=== PATIENT | male | born 1960 | race Caucasian/White ===

== ENCOUNTER 2022-09-21 19:04 | Inpatient (IN) ==
[2022-09-21] MEDS ORDERED: SODIUM CHLORIDE 0.9% 1000ML 1,000 ML IV SCH (19:15)
--- NOTE | 2022-09-21 19:25 | Emergency Department Note ---
Impression & Plan Syncope, PRO (acute kidney injury), Rhabdomyolysis, Elevated troponin I level ED Provider Note NAME: ZAKI LEIGH AGE: 61 SEX: M : 1960 ARRIVES VIA: Ambulance INFORMANT: Patient, EMS, the patient's ED PROVIDER(S): Delvin Wayne DO CHIEF COMPLAINT: Syncope HPI: The patient is a 61-year-old male who presented to the emergency department for an evaluation after having a syncopal episode. The patient was involved in the [employer] tri[place]lon this afternoon. He states that he did not have any food after the race. He finished at approximately 4:15 PM. The patient states that he has had trouble with cramping throughout the race. It started early this morning when he was doing the swimming part. He did finish the entire triath [place]. The patient was at the living accommodations waiting for food to be delivered. He had gotten out of the hot tub. They were sitting at the table when his significant other witnessed him pass out. He did not fall. He was seated at the time. There is no reported chest pain or difficulty breathing. The patient did have an episode of emesis. He was treated with IV fluids prior to arrival. Upon arrival the patient has no complaints. He states he feels at his baseline. 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 He states has been compliant with his outpatient medications otherwise. ROS: See above HPI for pertinent positives & negatives. A total of 10 systems reviewed and were otherwise negative. PAST MEDICAL HISTORY: See Below PAST SURGICAL HISTORY: See Below FAMILY HISTORY: See Below SOCIAL HISTORY: See Below HOME MEDICATIONS: See Below ALLERGIES: See Below VITALS: See Below PHYSICAL EXAMINATION: GENERAL: Patient is awake alert in no acute distress patient is resting comfortably and showing no signs of anxiety EYES: The conjunctivae are clear. The pupils are round and reactive. EARS, NOSE, MOUTH AND THROAT: The nose is without any evidence of any deformity. NECK: The neck is nontender and supple. RESPIRATORY: Normal respiratory effort is noted there is no evidence of wheezing rhonchi or rales CARDIOVASCULAR: Regular rate and rhythm noted there no murmurs rubs or gallops normal S1 normal S2. GASTROINTESTINAL: The abdomen is soft. Abdomen is nontender. MUSCULOSKELETAL/EXTREMITIES: There is no evidence of gross deformity full range of motion is noted in the hips and shoulders. SKIN: Skin is cool and dry. There is no pedal edema but the patient is diaphoretic in the lower extremities. NEUROLOGIC: Patient is awake alert and oriented x3 strength is symmetric patellar reflexes are 2+ bilaterally MEDICAL DECISION MAKING: The patient is a 61-year-old male who presented to the emergency department after having a syncopal episode. The patient arrived via ambulance. The patient had an episode of emesis. This occurred while he was seated. There was no reported trauma. The patient had no focal neurologic deficits. He was feeling much better on reevaluation after being treated with IV fluids. I discussed the patient's laboratory and radiographic studies with him. He was found to have an elevation in his creatinine. I doubt this is the patient's baseline creatinine given his past medical history. He was also found to have a slight elevation in his troponin which is likely secondary to running and participating in the recent [place]. The patient was reevaluated multiple times. [facility] have agreed to evaluate the patient in the emergency department for further management and disposition. Triage Nursing notes reviewed. Prior medical records reviewed Vital Signs: reviewed and remarkable for no significant abnormalities Differential diagnosis: Vasovagal event, dehydration, infection, hypoglycemia, electrolyte abnormalities, cardiac sources, intracerebral event, pulmonary embolism, seizure, toxicologic, neurologic, as well as other pathologies. ER treatment provided: See below Diagnostics interpreted by me: ECG: EKG was obtained in the emergency department. My interpretation is sinus bradycardia 55 bpm. There was no ectopy. There is no acute ST segment abnormalities noted. No previous tracing was available. Cardiac Monitoring: An order was placed for continuous cardiac monitoring. The monitor shows a rate of 60 bpm with sinus rhythm. Laboratory studies: As stated above and show below. Imaging studies: See below. Radiographic imaging was reviewed by myself Consultation(s): I discussed this case with Dr. Mckeon who [facility] Past Med/Surg History Medical History Hypertension Protein S deficiency Surgical History H/O bilateral hip replacements Social History Smoking Status: Never smoker Allergies Allergies Allergy/AdvReac Type Severity Reaction Status Date / Time Penicillins Allergy Unknown Verified 09/21/22 19:20 Home Meds Home Medications Medication Instructions Recorded Confirmed amlodipine 5 mg tablet 5 mg PO DAILY 09/21/22 09/21/22 apixaban 5 mg tablet (Eliquis) 5 mg PO BID 09/21/22 09/21/22 guselkumab 100 mg/mL subcutaneous 100 mg subcut .[id number] 09/21/22 09/21/22 auto-injector (Tremfya) losartan 100 mg tablet 100 mg PO DAILY 09/21/22 09/21/22 Results & Data (ED) Vital Signs Vital Signs - 24 hr 09/21/22 19:09 09/21/22 19:19 09/21/22 19:15 Temperature 36.7 C Temperature Source Oral Pulse Rate 58 L 60 Respiratory Rate 12 Respiratory Effort / Characteristics Non-Labored Spontaneous Respiratory Depth Normal Respiratory Pattern Regular Blood Pressure 124/78 Blood Pressure Mean 93 Pulse Oximetry 92 95 Oxygen Delivery Method Room Air Sepsis Recent Fever Within 48 Hours No Sepsis New/Unexplained Change in Mental Status No Sepsis Action Taken by Nursing No Action Required Home Medications Current Medication List: was personally reviewed by me Laboratory Data Attestation: I reviewed the patient's lab results. 09/21/22 19:10 09/21/22 19:10 Lab Results 09/21/22 09/21/22 09/21/22 Range/Units 19:10 19:10 19:10 WBC 13.14 H (4.8-10.8) K/ul RBC 4.77 (4.70-6.10) M/uL Hgb 14.6 (14.0-18.0) g/dl Hct 41.3 L (42.0-52.0) % MCV 86.6 (80.0-100.0) fL MCH 30.6 (25.0-34.0) pg MCHC 35.4 (32.0-36.0) g/dL RDW Std Deviation 41.0 (36.4-46.3) fL RDW Coeff of Patsy 13.0 (11.5-14.5) % Plt Count 209 (130-400) K/uL MPV 10.7 (9.4-12.4) fL Immature Gran % (Auto) 0.4 % Neut % (Auto) 74.5 % Lymph % (Auto) 13.4 % [place] % (Auto) 11.3 % Eos % (Auto) 0.1 % Baso % (Auto) 0.3 % Neut # (Auto) 9.80 H (1.40-6.50) K/uL Lymph # (Auto) 1.76 (1.2-3.4) K/uL [place] # (Auto) 1.48 H (0.11-0.59) K/uL Eos # (Auto) 0.01 (0-0.50) K/uL Baso # (Auto) 0.04 (0-0.2) K/uL Immature Gran # (Auto) 0.05 (0.01-0.20) K/uL PT 11.4 (9.0-12.0) Seconds INR 1.0 (0.9-1.1) APTT 24.0 (21.0-31.0) Seconds PTT Ratio 0.9 Sodium 143 (136-145) mmol/L Potassium 4.0 (3.5-5.1) mmol/L Chloride 105 (98-107) mmol/L Carbon Dioxide 29 (21-32) mmol/L Anion Gap 9 (3-11) BUN 29 H (6-23) mg/dl Creatinine 2.85 H (0.6-1.4) mg/dl Est Cr Clr Drug Dosing 29.8 ml/min Est GFR ( Amer) 26.6 ml/min Est GFR (Non-Af Amer) 23.0 ml/min BUN/Creatinine Ratio 10.2 (10-20) Glucose 110 H (70-99(Fasting)) mg/dl Calcium 10.3 (8.6-10.3) mg/dl Magnesium 2.1 (1.7-2.4) mg/dl Total Bilirubin 0.5 (0.2-1.0) mg/dl AST 44 H (13-39) U/L ALT 22 (7-52) U/L Alkaline Phosphatase 66 (34-104) U/L Total Creatine Kinase 960 H (30-223) U/L Troponin I High Sens 149.2 H* (0-20) pg/ml Total Protein 7.0 (6.0-8.3) gm/dl Albumin 4.4 (3.4-5.0) gm/dl Globulin 2.6 (2.5-4.0) gm/dl Albumin/Globulin Ratio 1.7 (0.9-2) Lipase 35 (11-82) U/L TSH (0.300-4.500) uIu/ml Urine Color Urine Appearance (Clear) Urine pH (4.5-7.5) Ur Specific [place] (1.000-1.030) Urine Protein (Negative) Urine Glucose (UA) (Negative) Urine Ketones (Negative) Urine Blood (Negative) Urine Nitrite (Negative) Urine Bilirubin (Negative) Urine Urobilinogen (Negative) Ur Leukocyte Esterase (Negative) Urine WBC (Auto) (0-5) /hpf Urine RBC (Auto) (0-4) /hpf U Hyaline Cast (Auto) (0-5) /lpf U Epithel Cells (Auto) (0-5) /lpf Urine Bacteria (Auto) (Negative) Ur Renal Epithelial Cell Granular Casts (0) /lpf SARS-CoV-2, RNA, NAAT (NEGATIVE) 09/21/22 09/21/22 09/21/22 Range/Units 19:10 19:30 20:07 WBC (4.8-10.8) K/ul RBC (4.70-6.10) M/uL Hgb (14.0-18.0) g/dl Hct (42.0-52.0) % MCV (80.0-100.0) fL MCH (25.0-34.0) pg MCHC (32.0-36.0) g/dL RDW Std Deviation (36.4-46.3) fL RDW Coeff of Patsy (11.5-14.5) % Plt Count (130-400) K/uL MPV (9.4-12.4) fL Immature Gran % (Auto) % Neut % (Auto) % Lymph % (Auto) % [place] % (Auto) % Eos % (Auto) % Baso % (Auto) % Neut # (Auto) (1.40-6.50) K/uL Lymph # (Auto) (1.2-3.4) K/uL [place] # (Auto) (0.11-0.59) K/uL Eos # (Auto) (0-0.50) K/uL Baso # (Auto) (0-0.2) K/uL Immature Gran # (Auto) (0.01-0.20) K/uL PT (9.0-12.0) Seconds INR (0.9-1.1) APTT (21.0-31.0) Seconds PTT Ratio Sodium (136-145) mmol/L Potassium (3.5-5.1) mmol/L Chloride (98-107) mmol/L Carbon Dioxide (21-32) mmol/L Anion Gap (3-11) BUN (6-23) mg/dl Creatinine (0.6-1.4) mg/dl Est Cr Clr Drug Dosing ml/min Est GFR ( Amer) ml/min Est GFR (Non-Af Amer) ml/min BUN/Creatinine Ratio (10-20) Glucose (70-99(Fasting)) mg/dl Calcium (8.6-10.3) mg/dl Magnesium (1.7-2.4) mg/dl Total Bilirubin (0.2-1.0) mg/dl AST (13-39) U/L ALT (7-52) U/L Alkaline Phosphatase (34-104) U/L Total Creatine Kinase (30-223) U/L Troponin I High Sens (0-20) pg/ml Total Protein (6.0-8.3) gm/dl Albumin (3.4-5.0) gm/dl Globulin (2.5-4.0) gm/dl Albumin/Globulin Ratio (0.9-2) Lipase (11-82) U/L TSH 3.582 (0.300-4.500) uIu/ml Urine Color Dark Yellow Urine Appearance Turbid A (Clear) Urine pH 5.0 (4.5-7.5) Ur Specific [place] 1.028 (1.000-1.030) Urine Protein 3+ H (Negative) Urine Glucose (UA) Negative (Negative) Urine Ketones 1+ H (Negative) Urine Blood 2+ H (Negative) Urine Nitrite Negative (Negative) Urine Bilirubin 1+ H (Negative) Urine Urobilinogen Negative (Negative) Ur Leukocyte Esterase Trace H (Negative) Urine WBC (Auto) >30 H (0-5) /hpf Urine RBC (Auto) 5-10 H (0-4) /hpf U Hyaline Cast (Auto) 5-10 H (0-5) /lpf U Epithel Cells (Auto) >30 H (0-5) /lpf Urine Bacteria (Auto) Negative (Negative) Ur Renal Epithelial Cell Not Reportable Granular Casts 5-10 H (0) /lpf SARS-CoV-2, RNA, NAAT NEGATIVE (NEGATIVE) Administered Medications Discontinued Medications Sodium Chloride (Nss 1000ml) 1,000 mls @ 999 mls/hr IV .[id number] TABBY Stop: 09/21/22 20:15 Last Infusion: 09/21/22 20:35 Dose: 0 mls/hr Documented By: Admin: 09/21/22 19:30 Dose: 999 mls/hr Documented By: LAUREN Imaging Data Attestation: I personally reviewed and interpreted this imaging study as follows: My Impression: 1 view chest x-ray was obtained in the emergency department. My interpretation is no free air, no definite infiltrate, final report below. Radiologist's Impression: Chest X-Ray 09/21/22 19:13 SINGLE VIEW CHEST CLINICAL HISTORY: Syncope. FINDINGS: An AP, portable, upright chest radiograph is obtained. No prior studies are available for comparison at the time of dictation. The cardiomediastinal silhouette is top normal for projection. The lungs and pleural spaces are clear. No pneumothorax is seen. The bony thorax is grossly intact. IMPRESSION: No active disease in the chest. ACT 112: Negative or not required by law. Electronically signed by: Álvaro Gray M.D. 09/21/2022 7:44 PM Discharge Plan Visit Data Chief Complaint: Syncope ED Provider: Delvin Wayne Discharge Problem: Syncope, PRO (acute kidney injury), Rhabdomyolysis, Elevated troponin I level Patient Disposition: Being Evaluated by Hospitalist Forms Stand Alone Forms: My [facility] Prescriptions Prescriptions: No Action amlodipine 5 mg Tablet 5 mg PO DAILY losartan 100 mg Tablet 100 mg PO DAILY Eliquis 5 mg Tablet 5 mg PO BID Tremfya 100 mg/mL Auto-Injector 100 mg SUBCUT .[id number] Referrals Referrals: PCP,NO [Primary Care Provider] -
[2022-09-21 19:30] LABS: Basophils # (auto) 0.04 K/uL (0-0.2); Basophils % (auto) 0.3 %; Eosinophils # (auto) 0.01 K/uL (0-0.50); Eosinophils % (auto) 0.1 %; Hematocrit (blood only) 41.3 % (42.0-52.0); Hemoglobin 14.6 g/dl (14.0-18.0); Immature Granulocytes # (auto) 0.05 K/uL (0.01-0.20); Immature Granulocytes % (auto) 0.4 %; Lymphocytes # (auto) 1.76 K/uL (1.2-3.4); Lymphocytes % (auto) 13.4 %; Mean Corpuscular Hemoglobin 30.6 pg (25.0-34.0); Mean Corpuscular Hgb Conc 35.4 g/dL (32.0-36.0); Mean Corpuscular Volume 86.6 fL (80.0-100.0); Mean Platelet Volume 10.7 fL (9.4-12.4); Monocytes # (auto) 1.48 K/uL (0.11-0.59); Monocytes % (auto) 11.3 %; Neutrophils % (auto) 74.5 %; Platelet Count 209 K/uL (130-400); Red Blood Count 4.77 M/uL (4.70-6.10); White Blood Count 13.14 K/ul (4.8-10.8)
[2022-09-21 19:43] LABS: Albumin Globulin Ratio 1.7 (0.9-2); Albumin Level 4.4 gm/dl (3.4-5.0); BUN Creatinine Ratio 10.2 (10-20); Bilirubin,Total 0.5 mg/dl (0.2-1.0); Calcium 10.3 mg/dl (8.6-10.3); Creatinine Clr Calc Pharmacy 29.8 ml/min; Est GFR (African American) 26.6 ml/min; Globulin 2.6 gm/dl (2.5-4.0); Magnesium 2.1 mg/dl (1.7-2.4)
--- NOTE | 2022-09-21 19:47 | XRay Report ---
SINGLE VIEW CHEST CLINICAL HISTORY: Syncope. FINDINGS: An AP, portable, upright chest radiograph is obtained. No prior studies are available for c omparison at the time of dictation. The cardiomediastinal silhouette is top normal for projection. Th e lungs and pleural spaces are clear. No pneumothorax is seen. The bony thorax is grossly intact. IMPRESSION: No active disease in the chest. ACT 112: Negative or not required by law. Electronically signed by: Álvaro Gray M.D. 09/21/2022 7:44 PM
[2022-09-21 19:48] LABS: Appearance Urine Turbid (Clear); Bacteria Urine Automated Negative (Negative); Blood Urine 2+ (Negative); Color Urine Dark Yellow; Epithelial Cell Urine Auto >30 /lpf (0-5); Glucose Urine UA Negative (Negative); Ketones Urine 1+ (Negative); Leukocyte Esterase Urine Trace (Negative); Nitrite Urine Negative (Negative); Protein Urine 3+ (Negative); Specific Gravity Urine 1.028 (1.000-1.030); Urobilinogen Urine Negative (Negative); WBC Urine Automated >30 /hpf (0-5)
[2022-09-21 19:55] LABS: Partial Thromboplastin Ratio 0.9; Prothrombin Time 11.4 Seconds (9.0-12.0)
[2022-09-21 19:56] LABS: Troponin I High Sensitivity 149.2 pg/ml (0-20)
[2022-09-21 20:00] LABS: Bilirubin Urine 1+ (Negative)
[2022-09-21] MEDS ORDERED: SODIUM CHLORIDE 0.45 % 1,000 ML IV ONE (20:48)
--- NOTE | 2022-09-21 23:00 | CT Scan Report ---
Exam(s): CT HEAD Without Contrast EXAM: CT Head Without Intravenous Contrast CLINICAL HISTORY: Reason for exam: veda, diane. TECHNIQUE: Axial computed tomography images of the head/brain without intravenous contrast. Automated exposure control was utilized for the study. A dose lowering technique was utilized adhering to the principles of ALARA. COMPARISON: No relevant prior studies available. FINDINGS: Brain: No hemorrhage, extra-axial fluid collection, mass effect, or edema. Ventricles: Unremarkable. Bones/joints: Unremarkable. No fracture. Soft tissues: Unremarkable. Sinuses: No acute sinusitis. Mastoid air cells: Unremarkable as visualized. IMPRESSION: 1. No acute intracranial abnormality. Electronically signed by: Bk Weeks MD 09/21/22 22:59 PM
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
[2022-09-21] MEDS ORDERED: ACETAMINOPHEN 325 MG TAB PO PRN (23:17)
[2022-09-21] MEDS ORDERED: oxyCODONE HCL IR 5 MG TAB (IMMEDIATE RELEASE) PO PRN (23:17)
[2022-09-21] MEDS ORDERED: LORazepam 2 MG/1 ML VIAL IV PRN (23:17)
[2022-09-21 23:28] LABS: BUN Creatinine Ratio 12.7 (10-20); Calcium 9.8 mg/dl (8.6-10.3); Creatinine Clr Calc Pharmacy 37.3 ml/min; Est GFR (African American) 34.8 ml/min; Est GFR (Non-African American) 30.1 ml/min; Potassium 4.2 mmol/L (3.5-5.1)
[2022-09-21 23:51] LABS: Troponin I High Sensitivity 103.5 pg/ml (0-20)
[2022-09-22] MEDS ORDERED: APIXABAN 2.5 MG TAB PO STA (00:01)
[2022-09-22] MEDS: LACTATED RINGER'S 1,000 ML IV SCH ×4 (01:35→22:43)
[2022-09-22] MEDS ORDERED: LACTATED RINGER'S 1,000 ML IV SCH (07:00)
[2022-09-22 08:25] LABS: Basophils # (auto) 0.04 K/uL (0-0.2); Basophils % (auto) 0.5 %; Eosinophils # (auto) 0.06 K/uL (0-0.50); Eosinophils % (auto) 0.7 %; Hematocrit (blood only) 38.7 % (42.0-52.0); Hemoglobin 13.3 g/dl (14.0-18.0); Immature Granulocytes # (auto) 0.03 K/uL (0.01-0.20); Immature Granulocytes % (auto) 0.3 %; Lymphocytes # (auto) 2.05 K/uL (1.2-3.4); Lymphocytes % (auto) 23.3 %; Mean Corpuscular Hgb Conc 34.4 g/dL (32.0-36.0); Mean Corpuscular Volume 87.2 fL (80.0-100.0); Mean Platelet Volume 11.1 fL (9.4-12.4); Monocytes # (auto) 0.91 K/uL (0.11-0.59); Monocytes % (auto) 10.3 %; Neutrophils # (auto) 5.72 K/uL (1.40-6.50); Neutrophils % (auto) 64.9 %; Platelet Count 197 K/uL (130-400); RDW Coefficient of Variation 13.4 % (11.5-14.5); RDW Standard Deviation 42.4 fL (36.4-46.3); Red Blood Count 4.44 M/uL (4.70-6.10); White Blood Count 8.81 K/ul (4.8-10.8)
[2022-09-22 08:41] LABS: Albumin Globulin Ratio 1.4 (0.9-2); Albumin Level 3.8 gm/dl (3.4-5.0); BUN Creatinine Ratio 17.2 (10-20); Bilirubin,Total 0.7 mg/dl (0.2-1.0); Calcium 8.7 mg/dl (8.6-10.3); Creatinine Clr Calc Pharmacy 48.2 ml/min; Est GFR (African American) 52.3 ml/min; Est GFR (Non-African American) 45.1 ml/min; Globulin 2.7 gm/dl (2.5-4.0); Total Protein 6.5 gm/dl (6.0-8.3)
[2022-09-22] MEDS ORDERED: APIXABAN 2.5 MG TAB PO SCH (09:00)
[2022-09-22] MEDS: amLODIPine BESYLATE 5 MG TAB PO SCH (09:14)
[2022-09-22 09:21] LABS: Troponin I High Sensitivity 53.4 pg/ml (0-20)
[2022-09-22] MEDS ORDERED: GADOBUTROL 65ML VIAL IV ONE (10:26)
--- NOTE | 2022-09-22 10:49 | Magnetic Resonance Report ---
MR brain seizure wo/w con CLINICAL HISTORY: sz TECHNIQUE: Multiplanar and multisequence MR images of the brain were obtained prior to and following administration of gadolinium contrast. Comparison: None available at the time of this dictation. FINDINGS: No abnormal restricted diffusion is identified. Foci of T2 and FLAIR hyperintensity are noted in the paraventricular areas consistent with chronic small vessel ischemic disease. The ventricular system i s normal in appearance.No mass or abnormal enhancement is seen. There is no mass effect or midline sh ift. There is no evidence of acute intraparenchymal hemorrhage. No extra axial fluid collections are seen. The corpus callosum, pituitary gland, and cerebellar tonsils appear grossly unremarkable. High- resolution images of the temporal lobes do not demonstrate any signal abnormality. Flow voids of the major intracranial arterial vessels are identified. The imaged portions of the para nasal sinuses, mastoid air cells, and orbits are unremarkable. IMPRESSION: No acute abnormality. In particular, no edema in the temporal lobes bilaterally in this postictal pat ient. ACT 112: Negative or not required by law. Electronically signed by: Javier Flores M.D. 09/22/2022 10:47 AM
--- NOTE | 2022-09-22 11:25 | Neurology Consultation ---
Date of Consultation September 22, 2022 Assessment & Plan (1) Syncope: (2) Rhabdomyolysis: (3) PRO (acute kidney injury): Plan Patient had episode of syncope with some seizure-like activity 1 time September 21 following an 8 hour triathlon raise (followed by being in a hot tub for 15 min utes). He was already cramping throughout the race suggesting dehydration and electrolyte imbalance and he likely experience vasodilation in the hot tub. This would put him at risk for orthostatic syncope with secondary seizure after 2. Neurologic examination is unremarkable with no focal findings, meningeal signs, or encephalopathy. He has expected elevation in CK secondary to the extreme physical activity he did on September 21. This will likely remain elevated for several days but then go back to normal. He has elevated BUN and creatinine from the dehydration. He does not have any cardiac issues otherwise. Recommendations: 1. I see no reason for additional neurologic testing (No need for an EEG). 2. keep hydrated and increase activity as able. 3. There is no need for additional neurologic treatment at this time and he needs no anticonvulsants. Overall, I spent a total of 80 minutes with this case, including review of records, MRI of the brain film review, report generation, direct evaluation the patient at bedside, and discussing the case with the patient, , and RN at bedside and Dr. Tariq, including differential diagnosis and treatment options. History of Present Illness Reason for Consultation: patient is a 61-year-old, was asked to see at the request of Dr. García, for neurologic consultation regarding an episode of syncope with seizure-like activity. Requesting Physician: Dr. García Attending Physician: Pino Tariq MD History of Present Illness Patient's and son are present in the room and add to the history. the patient has a history of hypertension controlled with medication and clotting disorder including protein S deficiency and factors 2 and 5 issues. He has been on apixaban for several years. He has never had any episodes of syncope, seizures, Stroke, or head trauma. Patient was in [place] for the triathlon held yesterday September 21. Not too long after he was in the water during the 1st phase of the event (swimming), he started having cramping in his legs. He did have to hold on to the boat at times because of this. He then did the bike phase where he had cramping. Finally, he had the running phase but he walked the entire running phase (he has bilateral hip replacements and never plan to run this phase anyway). Along the course he did eat and drink as much as he could. it was very humid and warm out any did a lot of sweating. he started the race around 8 o'clock in the morning and finish the race around 415 in the afternoon. After this he gets changed and rested some. He did not have much to eat or drink after the race and then about an hour after finishing he went into the hot tub. He was very lightheaded and had some increased cramping and some nausea. He got out of the hot tub after 15 minutes and within a few minutes he was sitting and put his head in his hands and then suddenly tilted his head back with his eyes rolled up having some generalized shaking of the limbs (according to the patient's who witnessed this).This lasted a couple of minutes and then he was taken from sitting to a lying position and he woke up. He did not have a postictal phase and was starting to joke within seconds of waking up. He had no tongue biting or incontinence. His heart rate was low and his blood pressure was low according to the patient's getting data from the EMS personnel. O2 saturation was in the 80s. He arrived to the hospital at 7:09 p.m. with a temperature 36.7, pulse 58 regular, respiratory rate 12, blood pressure 124/78, and O2 saturation 92% . He was awake and alert with normal speech and mentation. He had no focal findings on exam. CBC and Chem profile were unremarkable those white count was 13. BUN creatinine were elevated at 29 and 2.85. CK was 560 N troponin was 149. This morning, BUN and creatinine were 28 and 1.6 and CK was 1353. Troponin had dropped to 53. He has had no further spells since admission. He feels back to baseline. MRI of the brain this morning was unremarkable, with and without contrast. There were a few small nonspecific old small vessel ischemic changes scattered. Allergies Allergy/AdvReac Type Severity Reaction Status Date / Time Penicillins Allergy Unknown Verified 09/21/22 19:20 Home Medications Medication Instructions Recorded Confirmed Type amlodipine 5 mg tablet 5 mg PO DAILY 09/21/22 09/21/22 History apixaban 5 mg tablet (Eliquis) 5 mg PO BID 09/21/22 09/21/22 History guselkumab 100 mg/mL subcutaneous 100 mg subcut .[id number] 09/21/22 09/21/22 History auto-injector (Tremfya) losartan 100 1 tab PO DAILY 09/21/22 09/21/22 History mg-hydrochlorothiazide 12.5 mg tablet Patient History Medical History Hypertension Protein S deficiency Surgical History H/O bilateral hip replacements Social History (Updated 09/22/22 @ 11:43 by Vaibhav Stout MD) Smoking Status: Never smoker Hx Alcohol Use: Yes Alcohol type: beer and wine Alcohol Intake Frequency: 2-3 x/Week Hx Substance Use: No Preferred Language: Turkmen Communication Ability: Effective Smash Piecer Required: No Beliefs That Will Affect Care: None Current Living Situation: Family current occupational status: employed current occupation: Works in IT who Feels Safe at Home: Yes Review of Systems Constitutional: no fever, no fatigue and no weakness Eyes: no diplopia, no eye pain and no worsening vision Ear, Nose, Mouth, Throat: no ear pain, no tinnitus, no hearing loss, no dizziness, no snoring, no hoarseness and no dysphagia Respiratory: no cough and no dyspnea Cardiovascular: no chest pain, no palpitations and no lightheadedness Gastrointestinal: no abdominal pain, no nausea and no vomiting Musculoskeletal: no back pain, no neck pain, no radicular pain, no joint pain and no myalgia Integumentary: no rash and no lesions Neurologic: no gait abnormality, no localized weakness, no generalized weakness, no tingling, no numbness, no tremor(s), no abnormal movements, no headache(s), no abnormal speech, no confusion and no memory loss Psychiatric: no depression, no irritability, no anxiety, no difficulty concentrating, no confusion and no hallucinations Endocrine: no fatigue and no flushing Hematologic / Lymphatic: no easy bleeding and no easy bruising Allergy / Immunological: no urticaria and no problem reported Exam (Neuro) Physical Exam: The patient is right-handed. The patient is awake, alert, and attentive. Speech is normal without any aphasia or dysarthria. The patient can name objects, repeat phrases, and has normal spontaneous speech. Mentation and thought processes are intact, with orientation to person, place and time, and normal fund of knowledge. Attention and concentration are normal. Mood and affect are normal and appropriate. General appearance and grooming are normal. Short and long-term memory are intact. Pupils are 4 mm bilaterally and reactive to light. Extraocular eye muscles are intact without nystagmus. Visual acuity and visual rutherford seem normal grossly to confrontation. There are no deficits to sensation in the face in all 3 distributions of the fifth cranial nerve bilaterally. Corneal reflexes are positive bilaterally. Facial strength and symmetry was normal bilaterally. Hearing seems normal bilaterally. Palate moves well without asymmetry. There is normal sternocleidomastoid and trapezius (shoulder shrug) strength bilaterally. Tongue is midline with good strength bilaterally. Neck has a full range of motion without discomfort. There are no cervical bruits bilaterally. There are no cranial or ocular bruits. Heart is without murmur. There is a regular rhythm and rate. Cervical, thoracic, and lumbar spine are nontender to palpation. stance sitting up in bed is normal.. With outstretched arms there is no drift. There are no resting, postural, or action tremors. There is no ataxia with finger to nose testing. There is good facility in the hands. No other abnormal involuntary movements are noted. Motor strength is 5/5 diffusely in the arms bilaterally including deltoids, biceps, triceps, brachioradialis, wrist flexors and extensors, anti tank missileman, and intrinsic hand muscles. Motor strength is 5/5 diffusely in the legs bilaterally including hip flexors, quadriceps, hamstrings, gastrocnemius, tibialis anterior, tibialis posterior, and Peroneii muscles. Toe extensors are normal and there is good bulk in the extensor digitorum brevis muscles bilaterally. The limbs have good tone without rigidity or spasticity. There is no atrophy noted in the muscles. Muscle bulk is normal, there is no tenderness to palpation, no myotonia to percussion, and no fasciculations seen. Sensory examination is intact to touch and pin throughout all 4 limbs diffusely. Reflexes are 2/4 in the biceps, triceps, brachioradialis, quadriceps, and Achilles tendons bilaterally. There is no clonus bilaterally. Toes are downgoing with plantar stimulation bilaterally. Peripheral pulses are present and of normal quality distally in all 4 limbs. There is no peripheral edema noted in the limbs. Results & Data Vital Signs (Past 12 Hours) Vital Signs Temp Pulse Pulse Resp BP Pulse Ox Pulse Ox 09/22/22 07:57 36.4 C L 59 L 18 139/75 93 09/22/22 07:07 60 09/22/22 04:26 36.5 C 63 18 113/56 L 96 09/22/22 00:52 63 09/22/22 00:56 36.4 C L 58 L 16 123/74 94 09/22/22 00:56 94 09/21/22 23:36 61 O2 Del Method O2 Del Method 09/22/22 07:57 Room Air 09/22/22 07:07 09/22/22 04:26 Room Air 09/22/22 00:52 09/22/22 00:56 Room Air 09/22/22 00:56 Room Air 09/21/22 23:36 PG Care Time/CCT Total # of Minutes Spent Total Time Spent with Patient: Total time spent is greater than 50% in coordination of care (as documented) at patient's floor/unit and/or counseling patient: Coding Level of Care Code 87582 IN/OBS CONSULT LVL 5,80M Diagnoses Syncope R55 Syncope type: unspecified Rhabdomyolysis M62.82 Rhabdomyolysis type: non-traumatic PRO (acute kidney injury) N17.9 Time Spent (min) 80 (1) Syncope Syncope type: unspecified Qualified Code(s): R55 - Syncope and collapse (2) Rhabdomyolysis Rhabdomyolysis type: non-traumatic Qualified Code(s): M62.82 - Rhabdomyolysis
--- NOTE | 2022-09-22 15:43 | Electroencephalogram ---
EEG Procedure Note Date of Service September 22, 2022 Start / End Times Start Time: 1401 End Time: [address] García History History of syncope with seizure-like activity Home Medication List Medication Instructions Recorded Confirmed Type amlodipine 5 mg tablet 5 mg PO DAILY 09/21/22 09/21/22 History apixaban 5 mg tablet (Eliquis) 5 mg PO BID 09/21/22 09/21/22 History guselkumab 100 mg/mL subcutaneous 100 mg subcut .[id number] 09/21/22 09/21/22 History auto-injector (Tremfya) losartan 100 1 tab PO DAILY 09/21/22 09/21/22 History mg-hydrochlorothiazide 12.5 mg tablet Inpatient Medication List Amlodipine Besylate (Amlodipine Besylate 5 Mg Tab) 5 mg PO DAILY TABBY Stop: 10/22/22 08:59 Last Admin: 09/22/22 09:14 Dose: 5 mg Documented By: SHARI Lactated Ringer's (Lr) 1,000 mls @ 150 mls/hr IV .Q6H40M TABBY Stop: 09/24/22 01:29 Last Admin: 09/22/22 09:14 Dose: 150 mls/hr Documented By: Infusion: 09/22/22 08:16 Dose: 150 mls/hr Documented By: Admin: 09/22/22 01:35 Dose: 150 mls/hr Documented By: TEE Discontinued Medications Apixaban (Apixaban 2.5 Mg Tab) 2.5 mg PO BID TABBY Stop: 10/22/22 08:59 Last Admin: 09/22/22 09:14 Dose: 2.5 mg Documented By: SHARI Apixaban (Apixaban 2.5 Mg Tab) 2.5 mg PO ONE STA Stop: 09/22/22 00:02 Last Admin: 09/22/22 01:35 Dose: 2.5 mg Documented By: TEE Gadobutrol (Gadobutrol 65ml Vial) 8.5 ml IV ONCE ONE Stop: 09/22/22 10:27 Last Admin: 09/22/22 10:27 Dose: 8.5 ml Documented By: VILLA Sodium Chloride (Nss 1000ml) 1,000 mls @ 999 mls/hr IV .Q1H1M TABBY Stop: 09/21/22 20:15 Last Infusion: 09/21/22 20:35 Dose: 0 mls/hr Documented By: Admin: 09/21/22 19:30 Dose: 999 mls/hr Documented By: LAUREN Sodium Chloride (1/2 Nss) 1,000 mls @ 100 mls/hr IV .Q10H ONE Stop: 09/22/22 06:47 Last Infusion: 09/22/22 01:35 Dose: 0 mls/hr Documented By: Admin: 09/21/22 22:12 Dose: 100 mls/hr Documented By: LAUREN Description This is a 21 electrode EEG with a single channel dedicated to limited EKG. The electrodes were placed in accordance with the International 10-20 system. Interpretation The predominant background activity consists of a very well modulated 9.5 Hz activity, of up to 60 mV in amplitude,seen symmetrically distributed over the posterior head regions bilaterally. This activity attenuates with eye-opening and other alerting procedures. Photic stimulation was performed and elicited no change in the background activity and no abnormal responses were seen. Hyperventilation was not performed. A minimal amount of muscle and movement artifact activity contaminated the recording and did not hinder interpretation to any significant degree. Throughout the waking portion of the recording, no focal abnormalities, abnormal slow activity, or potentially epileptogenic discharges are seen. The patient entered the drowsy state and brief periods of stage II sleep with no further activation. In summary, this EEG was normal during wakefulness and sleep. No focal abnormalities, potentially epileptogenic discharges, or abnormal slow activity was seen. Clinical Correlation The abscence of potentially epileptogenic activity does not exclude a seizure disorder, since interictally, EEGs can be normal. Clinical correlation is required. [facility] EEG Procedure Codes Indication for Procedure (1) Syncope: (2) Seizure-like activity: Neurology Neurology: 77311 EEG include record awake & sleepy
[2022-09-22 16:11] LABS: Amphetamines+Metham, Urine Neg (Neg); Barbiturates, Urine Neg (Neg); Benzodiazepine, Urine Neg (Neg); Cocaine, Urine Neg (Neg); MDMA (Ecstacy), Urine Neg (Neg); Methadone, Urine Neg (Neg); Opiate, Urine Neg (Neg); Phencyclidine, Urine Neg (Neg)
--- NOTE | 2022-09-22 17:57 | Hospitalist Progress Note ---
Date of Service September 22, 2022 Assessment & Plan (1) Syncope: Plan: Acute rhabdomyolysis Acute kidney injury, troponin elevation secondary to above -Cr:2.8>2.28>1.63 -Troponin trended down CK 1353 Continue IV fluids Avoid nephrotoxic agents as able Hold losartan, HCTZ Monitor renal function Syncope Sinus bradycardia Likely due to orthostatic hypotension due to dehydration from triathlon race Rule out arrhythmias H/O multiple concussions --MRI Brain:No acute abnormality. In particular, no edema in the temporal lobes bilaterally in this postictal patient. --EEG:EEG was normal during wakefulness and sleep. No focal abnormalities, potentially epileptogenic discharges, or abnormal slow activity was seen. --ECHO: Mild concentric LVH. Left ventricle wall motion is normal. Localization versus normal. EF 55 to 60%. No significant valvular heart disease. Was scheduled to have stress test as outpatient by his lumber tripper for Tachycardia Monitor on telemetry Advised to have ZIO monitor arranged by his lumber tripper Appreciate neurology input H/O Recurrent DVT S/P IVC filter placement H/O factor V Leiden mutation, prothrombin gene mutation Continue Eliquis DVT Px: Eliquis Code Status Full code Admission and Anticipated Discharge Date Admission Date: September 21, 2022 Subjective Patient is seen and examined at bedside States having generalized muscle soreness Otherwise feels well Discussed with neurology today Denies any chest pain, shortness of breath, dizziness, nausea, abdominal pain Also discussed with patient's family at bedside Review of Systems Review of Systems: All systems reviewed & are unremarkable except as noted in Subjective Physical Exam Physical Exam: Physical Exam: Vitals signs as noted above General Appearance:Moderately built and nourished, no apparent distress Head: normocephalic, Atraumatic Eyes: normal inspection, EOMI Neck: supple, Trachea midline Respiratory/Chest: Normal breath sounds, CTA, No accessory muscle use Cardiovascular: S1, S2, No murmur Abdomen/GI:Soft, Non tender, Bowel sounds present Extremities/Musculoskeletal:normal inspection, no edema Neurologic/Psych:AAOX3, grossly no focal neurological deficits Skin: normal color, warm Results & Data Results & Data Vital Signs (Past 12 Hours) Vital Signs Temp Pulse Pulse Resp BP Pulse Ox O2 Del Method 09/22/22 15:26 36.4 C L 56 L 18 144/78 H 95 Room Air 09/22/22 12:24 36.7 C 55 L 18 137/77 96 Room Air 09/22/22 07:57 36.4 C L 59 L 18 139/75 93 Room Air 09/22/22 07:07 60 Laboratory Results Short CBC 09/21/22 09/22/22 Range/Units 19:10 07:43 WBC 13.14 H 8.81 (4.8-10.8) K/ul Hgb 14.6 13.3 L (14.0-18.0) g/dl Hct 41.3 L 38.7 L (42.0-52.0) % Plt Count 209 197 (130-400) K/uL BMP 09/21/22 09/21/22 09/22/22 19:10 22:53 07:43 Sodium 143 140 140 Potassium 4.0 4.2 4.0 Chloride 105 104 104 Carbon Dioxide 29 29 32 BUN 29 H 29 H 28 H Creatinine 2.85 H 2.28 H D 1.63 H D Glucose 110 H 158 H 93 Calcium 10.3 9.8 8.7 Cardiac Enzymes 09/21/22 09/22/22 Range/Units 19:10 07:43 Total Creatine Kinase 960 H 1353 H (30-223) U/L Liver Function 09/21/22 09/22/22 Range/Units 19:10 07:43 Total Bilirubin 0.5 0.7 (0.2-1.0) mg/dl AST 44 H 62 H (13-39) U/L ALT 22 23 (7-52) U/L Alkaline Phosphatase 66 58 (34-104) U/L Albumin 4.4 3.8 (3.4-5.0) gm/dl Urine 09/21/22 Range/Units 19:30 Urine Color Dark Yellow Urine Appearance Turbid A (Clear) Urine pH 5.0 (4.5-7.5) Ur Specific [place] 1.028 (1.000-1.030) Urine Protein 3+ H (Negative) Urine Glucose (UA) Negative (Negative) (1) Syncope Syncope type: unspecified Qualified Code(s): R55 - Syncope and collapse
[2022-09-22] MEDS: APIXABAN 5 MG TABLET PO SCH (21:06)
[2022-09-23] MEDS: LACTATED RINGER'S 1,000 ML IV SCH (05:34)
[2022-09-23 06:37] LABS: Hematocrit (blood only) 35.4 % (42.0-52.0); Mean Corpuscular Hemoglobin 30.2 pg (25.0-34.0); Mean Corpuscular Hgb Conc 33.9 g/dL (32.0-36.0); Mean Corpuscular Volume 89.2 fL (80.0-100.0); Mean Platelet Volume 11.2 fL (9.4-12.4); Platelet Count 153 K/uL (130-400); RDW Coefficient of Variation 13.2 % (11.5-14.5); RDW Standard Deviation 43.4 fL (36.4-46.3); Red Blood Count 3.97 M/uL (4.70-6.10); White Blood Count 7.99 K/ul (4.8-10.8)
[2022-09-23 07:42] LABS: BUN Creatinine Ratio 20.2 (10-20); Calcium 8.5 mg/dl (8.6-10.3); Est GFR (Non-African American) 77.7 ml/min; Magnesium 1.8 mg/dl (1.7-2.4); Potassium 3.9 mmol/L (3.5-5.1)
[2022-09-23] MEDS: APIXABAN 5 MG TABLET PO SCH (08:23)
[2022-09-23] MEDS: amLODIPine BESYLATE 5 MG TAB PO SCH (08:23)
[2022-09-23] MEDS ORDERED: amLODIPine BESYLATE 5 MG TAB PO ONE (09:15)
--- NOTE | 2022-09-23 13:07 | Hospitalist Progress Note ---
Date of Service September 23, 2022 Assessment & Plan (1) Syncope: Plan: Acute rhabdomyolysis Acute kidney injury, troponin elevation secondary to above -Cr:2.8>2.28>1.63>1.04 -Troponin trended down CK 1353>1236 Continue IV fluids Avoid nephrotoxic agents as able Hold losartan, HCTZ--advised to hold upon discharge for 3 days Monitor renal function Advised to get repeat BMP in 3 days upon discharge Syncope Sinus bradycardia Likely due to orthostatic hypotension due to dehydration from triathlon race Rule out arrhythmias H/O multiple concussions --MRI Brain:No acute abnormality. In particular, no edema in the temporal lobes bilaterally in this postictal patient. --EEG:EEG was normal during wakefulness and sleep. No focal abnormalities, potentially epileptogenic discharges, or abnormal slow activity was seen. --ECHO: Mild concentric LVH. Left ventricle wall motion is normal. Localization versus normal. EF 55 to 60%. No significant valvular heart disease. Was scheduled to have stress test as outpatient by his general operations agent for Tachycardia Monitor on telemetry Advised to have ZIO monitor arranged by his general operations agent Appreciate neurology input H/O Recurrent DVT S/P IVC filter placement H/O factor V Leiden mutation, prothrombin gene mutation Continue Eliquis HTN Increase amlodipine to 10 mg daily Hold losartan, HCTZ given PRO, rhabdo DVT Px: Eliquis Code Status Full code Admission and Anticipated Discharge Date Admission Date: September 21, 2022 Subjective Patient is seen and examined at bedside States breathing better today No new complaints Muscle soreness improving Denies any chest pain, shortness of breath, dizziness, nausea, abdominal pain Discussed with patient's family at bedside Plan to discharge home Review of Systems Review of Systems: All systems reviewed & are unremarkable except as noted in Subjective Physical Exam Physical Exam: Physical Exam: Vitals signs as noted above General Appearance:Moderately built and nourished, no apparent distress Head: normocephalic, Atraumatic Eyes: normal inspection, EOMI Neck: supple, Trachea midline Respiratory/Chest: Normal breath sounds, CTA, No accessory muscle use Cardiovascular: S1, S2, No murmur Abdomen/GI:Soft, Non tender, Bowel sounds present Extremities/Musculoskeletal:normal inspection, no edema Neurologic/Psych:AAOX3, grossly no focal neurological deficits Skin: normal color, warm Results & Data Results & Data Vital Signs (Past 12 Hours) Vital Signs Temp Pulse Pulse Resp BP Pulse Ox O2 Del Method 09/23/22 12:36 148/76 H 09/23/22 11:47 36.4 C L 55 L 18 171/94 H 97 Room Air 09/23/22 10:56 169/85 H 09/23/22 09:13 163/83 H 09/23/22 08:23 36.8 C 68 18 178/89 H 96 Room Air 09/23/22 07:23 61 09/23/22 04:00 36.6 C 65 18 154/80 H 95 Room Air Laboratory Results Short CBC 09/23/22 Range/Units 05:18 WBC 7.99 (4.8-10.8) K/ul Hgb 12.0 L (14.0-18.0) g/dl Hct 35.4 L (42.0-52.0) % Plt Count 153 (130-400) K/uL BMP 09/23/22 05:18 Sodium 140 Potassium 3.9 Chloride 106 Carbon Dioxide 30 BUN 21 Creatinine 1.04 D Glucose 93 Calcium 8.5 L Cardiac Enzymes 09/23/22 Range/Units 05:18 Total Creatine Kinase 1236 H (30-223) U/L (1) Syncope Syncope type: unspecified Qualified Code(s): R55 - Syncope and collapse
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
[2022-09-24] MEDS ORDERED: amLODIPine BESYLATE 5 MG TAB PO SCH (09:00)
--- NOTE | 2022-09-24 17:13 | Electrocardiogram Report ---
Test Reason : Blood Pressure : / mmHG Vent. Rate : 055 BPM Atrial Rate : 055 BPM P-R Int : 208 ms QRS Dur : 096 ms QT Int : 468 ms P-R-T Axes : 044 052 033 degrees QTc Int : 447 ms Sinus bradycardia with 1st degree A-V block Otherwise normal ECG No previous ECGs available Confirmed by Rylan Wells ([id number]) on 09/24/2022 5:12:44 PM Referred By: REFERRED SELF Confirmed By:Rylan Wells
== END 2022-09-23 13:33 | disposition home or self-care (01) | DRG 683 ==
LOC: ED 19:04 → 2W 23:13